=== PATIENT | female | born 1985 | race Caucasian/White ===

== ENCOUNTER 2016-10-20 20:17 | Emergency (ER) | payer SELFPAY ==
[~2016-10-20] VITALS: Ht 157.5 cm; Wt 48.5 kg
--- OUTSIDE RECORDS SUMMARY | 2016-10-20 20:21 | XMS REPORT | Continuity of Care Document ---
Author Author [facility] Organization [facility] Address Unknown Phone Unavailable Support Name Relationship Address Phone ONE, NO Next Of Kin [address] [place] [address] Insurance Providers Payer Name Policy Number Subscriber Name Relationship [facility] [id number] Lorenza [place] 17 Self / Same As Patient Advance Directives Directive Response Recorded Date Advanced Directives Not applicable 6:21am Problems No Known Problems or Medical conditions. Allergies, Adverse Reactions, Alerts Allergen Type Severity Reaction Last Updated SULFA Allergy 08/11/13 Medications Medication Dose Units Route Sig Qty Days No Active Prescriptions or Reported Medications Response Recorded Date/Time Status not known Unknown Results No Known Relevant Diagnostic Tests, Laboratory Data and/or Discharge Summary. Encounters Encounter Location Date/Time Departed Emergency Room [facility] 08/11/13 6:06am
--- OUTSIDE RECORDS SUMMARY | 2016-10-20 20:21 | XMS REPORT ---
Author Author Polly Porter Organization [employer] Address Unknown Phone Unavailable Care Team Providers Care Processor Grain Name Role Phone Polly Porter CP Unavailable Allergies No Known Allergies Problems Problem Type Condition ICD-9 Code Onset Dates Condition Status Problem Chronic tension type headache 339.12 Active Problem Other laboratory examination V72.69 Active Problem Routine gynecological examination V72.31 Active Problem Nonspecific abnormal results of other endocrine function study 794.6 Active Problem Health examination of defined subpopulation V70.5 Active Problem Amphetamine and other psychostimulant dependence, in remission 304.43 Active Problem Lump or mass in breast 611.72 Active Problem Personal history of tobacco use, presenting hazards to health V15.82 Active Medications No Known Medications Results No Known Results Summary Purpose [employer] Submission
--- OUTSIDE RECORDS SUMMARY | 2016-10-20 20:22 | XMS REPORT ---
Author Author Polly Porter Organization [employer] Address Unknown Phone Unavailable Care Team Providers Care Forming Process Line Worker Name Role Phone Polly Porter CP Unavailable Allergies No Known Allergies Problems Problem Type Condition ICD-9 Code Onset Dates Condition Status Problem Personal history of tobacco use, presenting hazards to health V15.82 Active Problem Routine gynecological examination V72.31 Active Problem Lump or mass in breast 611.72 Active Problem Abnormal weight gain 783.1 Active Problem Blood in stool 578.1 Active Problem Unspecified anemia 285.9 Active Problem Nonspecific abnormal results of other endocrine function study 794.6 Active Problem Other laboratory examination V72.69 Active Problem Migraine without aura, without mention of intractable migraine without mention of status migrainosus 346.10 Active Problem External hemorrhoids without mention of complication 455.3 Active Problem Chronic tension type headache 339.12 Active Problem Amphetamine and other psychostimulant dependence, in remission 304.43 Active Problem Health examination of defined subpopulation V70.5 Active Medications No Known Medications Results No Known Results Summary Purpose [employer] Submission
--- OUTSIDE RECORDS SUMMARY | 2016-10-20 20:22 | XMS REPORT ---
Author Author Polly Porter Organization [employer] Address Unknown Phone Unavailable Care Team Providers Care Tool Grinder Name Role Phone Polly Porter CP Unavailable Allergies No Known Allergies Problems Problem Type Condition ICD-9 Code Onset Dates Condition Status Problem Chronic tension type headache 339.12 Active Assessment Nonspecific abnormal results of other endocrine function [...] presenting hazards to health V15.82 Active Medications Medication Code System Code Instructions Start Date End Date Status Dosage Ibuprofen [facility] 72530712934 600 Active TAKE ONE TABLET BY MOUTH THREE TIMES A DAY WITH FOOD OR MILK Chantix Starting Month Jerome [facility] [address]-49 0.5 MG X 11 & 1 MG X 42 Orally twice a day Jun 07, 2014 Active as directed Ferrous Sulfate [facility] [address]-90 325 (65 Fe) MG Orally Twice a day May Active 1 tablet Iron [facility] [address]-13 325 (65 Fe) MG Orally qd Active 1 tablet Risperdal [facility] [address]-00 1 MG/ML Orally Once a day Active 1 tablet Brilinta [facility] [address]-50 20 MG Orally ONCE DAILY Active 1 tablet Plus [facility] [address]-11 27-1 MG Orally Once a day May 30, 2011 Active 1 tablet Methadone HCl [facility] [address]-12 40 mg Orally Once a day Active 1 tablet Tylenol [facility] [address]-13 325 MG Orally prn Active 1 tablet as needed Cyclobenzaprine HCl [facility] [address]-02 5 Active TAKE ONE TABLET BY MOUTH DAILY Strattera [facility] [address]-99 40 MG Orally Once a day Active 1 capsule Procedures Procedure Coding System Code Date ASSAY THYROID STIM HORMONE CPT-4 54567 Jul 15, 2014 Office Visit, Est Pt., Level 3 CPT-4 30014 Jul 15, 2014 ASSAY OF PROLACTIN CPT-4 53385 Jul 15, 2014 Vital Signs Date/Time: Jul 15, 2014 BMI 24.91 Index Weight 145.12 lbs Height 64 in Blood Pressure Diastolic 81 mm Hg Blood Pressure Systolic 124 mm Hg Temperature 98.1 F Cardiac Monitoring Heart Rate 79 /min Results No Known Results Summary Purpose [employer] Submission
--- OUTSIDE RECORDS SUMMARY | 2016-10-20 20:22 | XMS REPORT ---
Author Author Polly Porter Organization [employer] Address Unknown Phone Unavailable Care Team Providers Care Inventory Technician Name Role Phone Polly Porter CP Unavailable Allergies, Adverse Reactions, Alerts Substance Reaction Event Type Sulfacet-R Info Not Available Drug Allergy Problems Problem Type Condition ICD-9 Code Onset Dates Condition Status Problem Amphetamine and other psychostimulant dependence, in remission 304.43 Active Problem Chronic tension type headache 339.12 Active Problem Health examination of defined subpopulation V70.5 Active Assessment Chronic tension type headache 339.12 Active Assessment Health examination of defined subpopulation V70.5 Active Assessment Amphetamine and other psychostimulant dependence, in remission 304.43 Active Medications Medication Code System Code Instructions Start Date End Date Status Dosage Methadone HCl [facility] [address]-46 40 mg Orally Once a day Active 1 tablet Iron [facility] [address]-45 325 (65 Fe) MG Orally qd Active 1 tablet Plus [facility] [address]-11 27-1 MG Orally Once a day May 30, 2011 Active 1 tablet Ferrous Sulfate [facility] [address]-89 325 (65 Fe) MG Orally Twice a day May Active 1 tablet Tylenol [facility] [address]-42 325 MG Orally prn Active 1 tablet as needed Cyclobenzaprine HCl [facility] [address]-59 5 MG Orally Once a day Apr 15, 2014 May 15, 2014 Active 1 tablet Ibuprofen [facility] [address]-38 600 MG Orally Three times a day Apr 15, 2014 May 15, 2014 Active 1 tablet with food or milk Risperdal [facility] [address]-32 0.5 MG Orally Once a day Active 1 tablet Procedures Procedure Coding System Code Date Office Visit, Est Pt., Level 3 CPT-4 76840 Apr 15, 2014 Vital Signs Date/Time: Apr 15, 2014 BMI 22.23 Index Weight 129lb 8oz lbs Height 64 in Blood Pressure Diastolic 73 mm Hg Blood Pressure Systolic 120 mm Hg Temperature 98.3 F Cardiac Monitoring Heart Rate 81 /min Results No Known Results Summary Purpose [employer] Submission
--- OUTSIDE RECORDS SUMMARY | 2016-10-20 20:22 | XMS REPORT ---
Author Author Polly Porter Organization [employer] Address Unknown Phone Unavailable Care Team Providers Care Jerker Name Role Phone Polly Porter CP Unavailable Allergies No Known Allergies Problems Problem Type Condition Code Onset Dates Condition Status Problem Personal [...] hemorrhoids without mention of complication 455.3 Active Assessment Unspecified anemia 285.9 Active Problem Chronic tension type headache 339.12 Active Problem Amphetamine and other psychostimulant dependence, in remission 304.43 Active Problem Health examination of defined subpopulation V70.5 Active Medications Medication Code System Code Instructions Start Date End Date Status Dosage Ferrous Sulfate [facility] [address]-30 325 (65 Fe) MG Orally Once a day November 12, 2014 1 tablet with Vit C source Results No Known Results Summary Purpose [employer] Submission
--- OUTSIDE RECORDS SUMMARY | 2016-10-20 20:22 | XMS REPORT ---
Author Author Polly Potrer Organization [employer] Address Unknown Phone Unavailable Care Team Providers Care Statement Clerks Supervisor Name Role Phone Polly Porter CP Unavailable [...]
--- OUTSIDE RECORDS SUMMARY | 2016-10-20 20:22 | XMS REPORT ---
Author Author Polly Porter Organization [employer] Address Unknown Phone Unavailable Care Team Providers Care Civil Manager Name Role Phone Polly Porter CP Unavailable [...]
--- OUTSIDE RECORDS SUMMARY | 2016-10-20 20:22 | XMS REPORT ---
Author Author Polly Porter Organization [employer] Address Unknown Phone Unavailable Care Team Providers Care Blown Film Extrusion Operator Name Role Phone Polly Porter CP Unavailable Allergies, Adverse Reactions, Alerts Substance Reaction Event Type Sulfacet-R Info Not Available Drug Allergy Problems Problem Type Condition ICD-9 Code Onset Dates Condition Status Assessment Chronic tension type headache 339.12 Active Assessment Lump or mass in breast 611.72 Active Assessment Personal history of tobacco use, presenting hazards to health V15.82 Active Problem Lump or mass in breast 611.72 Active Problem Personal history of tobacco use, presenting hazards to health V15.82 Active Problem Routine gynecological examination V72.31 Active Problem Chronic tension type headache 339.12 Active Assessment Routine gynecological examination V72.31 Active Problem Health examination of defined subpopulation V70.5 Active Problem Amphetamine and other psychostimulant dependence, in remission 304.43 Active Medications Medication Code System Code Instructions Start Date End Date Status Dosage Risperdal [facility] [address]-79 1 MG/ML Orally Once a day Active 1 tablet Brilinta [facility] [address]-13 20 MG Orally ONCE DAILY Active 1 tablet Ferrous Sulfate [facility] [address]-05 325 (65 Fe) MG Orally Twice a day May Active 1 tablet Tylenol [facility] [address]-18 325 MG Orally prn Active 1 tablet as needed Chantix Starting Month Jerome [facility] [address]-82 0.5 MG X 11 & 1 MG X 42 Orally twice a day Jun 07, 2014 Active as directed Strattera [facility] [address]-26 40 MG Orally Once a day Active 1 capsule Methadone HCl [facility] [address]-01 40 mg Orally Once a day Active 1 tablet Plus [facility] [address]-46 27-1 MG Orally Once a day May 30, 2011 Active 1 tablet Iron [facility] [address]-91 325 (65 Fe) MG Orally qd Active 1 tablet Cyclobenzaprine HCl [facility] [address]-42 5 MG Orally Once a day Apr 15, 2014 Jun 14, 2014 Active 1 tablet Procedures Procedure Coding System Code Date Preventive Care Est. Pt. Age 18 -39 CPT-4 52271 Jun 07, 2014 CHYLMD TRACH, DNA, AMP PROBE CPT-4 29402 Jun 07, 2014 N.GONORRHOEAE, DNA, AMP PROB CPT-4 12315 Jun 07, 2014 URINE TEST CPT-4 08998 Jun 07, 2014 COMPLETE CBC W/AUTO DIFF WBC CPT-4 43626 Jun 07, 2014 ASSAY THYROID STIM HORMONE CPT-4 80778 Jun 07, 2014 COMPREHEN METABOLIC PANEL CPT-4 46842 Jun 07, 2014 TRICHOMONAS VAGIN, DIR PROBE CPT-4 65238 Jun 07, 2014 CANDY, DNA, DIR PROBE CPT-4 55240 Jun 07, 2014 ASSAY OF PROLACTIN CPT-4 89938 Jun 07, 2014 LANIER VAG, DNA, DIR PROBE CPT-4 88029 Jun 07, 2014 Vital Signs Date/Time: Jun 07, 2014 BMI 24.74 Index Weight 144.12 lbs Height 64 in Blood Pressure Diastolic 89 mm Hg Blood Pressure Systolic 133 mm Hg Temperature 97.9 F Cardiac Monitoring Heart Rate 103 /min Results No Known Results Summary Purpose [employer] Submission
--- OUTSIDE RECORDS SUMMARY | 2016-10-20 20:22 | XMS REPORT ---
Author Polly Jackson Organization [employer] Address Unknown Phone Unavailable Care Team Providers Care Chemistry Account Manager Name Role Phone Polly Porter CP Unavailable Allergies, Adverse Reactions, Alerts Substance Reaction Event Type Sulfacet-R Info Not Available Drug Allergy Problems Problem Type Condition Code Onset Dates Condition Status Problem Health examination of defined subpopulation V70.5 Active Problem Lump or mass in breast 611.72 Active Problem Personal history of tobacco use, presenting hazards to health V15.82 Active Problem Blood in stool 578.1 Active Problem Migraine without aura, without mention of intractable migraine without mention of status migrainosus 346.10 Active Problem Abnormal weight gain 783.1 Active Problem Other laboratory examination V72.69 Active Problem Routine gynecological examination V72.31 Active Problem External hemorrhoids without mention of complication 455.3 Active Problem Nonspecific abnormal results of other endocrine function study 794.6 Active Assessment Personal history of tobacco use, presenting hazards to health V15.82 Active Assessment External hemorrhoids without mention of complication 455.3 Active Assessment Other laboratory examination V72.69 Active Assessment Blood in stool 578.1 Active Assessment Migraine without aura, without mention of intractable migraine without mention of status migrainosus 346.10 Active Problem Chronic tension type headache 339.12 Active Assessment Abnormal weight gain 783.1 Active Problem Amphetamine and other psychostimulant dependence, in remission 304.43 Active Medications Medication Code System Code Instructions Start Date End Date Status Dosage Risperdal [facility] [address]-88 1 MG/ML Orally Once a day Aug 09, 2014 1 tablet Topamax [facility] [address]-17 25 MG Orally Twice a day November 10, 2014 1 tablet daily X 7 days, then 1 pill 2 X per day Chantix Starting Month Jerome [facility] [address]-73 0.5 MG X 11 & 1 MG X 42 Orally twice a day Jun 07, 2014 as directed Remeron [facility] [address]-55 60 Orally Once a day 1 tablet before bedtime in the evening trazadone [facility] 0 50mg PRN Hydrocortisone Acetate [facility] [address]-26 25 MG Rectal Twice a day November 10, 2014 November 24, 2014 1 suppository Cymbalta [facility] [address]-15 60 MG Orally Once a day 1 capsule Cyclobenzaprine HCl [facility] [address]-80 5 mg orally once a day TAKE ONE TABLET BY MOUTH DAILY as needed Ibuprofen [facility] 85044126080 600 orally once a day TAKE ONE TABLET BY MOUTH THREE TIMES A DAY WITH FOOD OR MILK Latuda [facility] [address]-95 60 MG Orally Once a day 1 tablet with food Procedures Procedure Coding System Code Date ASSAY THYROID STIM HORMONE CPT-4 76301 November 10, 2014 BASIC METABOLIC PANEL CPT-4 99960 November 10, 2014 COMPLETE CBC W/AUTO DIFF WBC CPT-4 03673 November 10, 2014 ASSAY OF PROLACTIN CPT-4 85305 November 10, 2014 ASSAY OF MAGNESIUM CPT-4 56152 November 10, 2014 Office Visit, Est Pt., Level 4 CPT-4 14367 November 10, 2014 Vital Signs Date/Time: November 10, 2014 BMI 27.94 Index Weight 162.8 lbs Height 64 in Blood Pressure Diastolic 75 mm Hg Blood Pressure Systolic 123 mm Hg Temperature 98.5 F Cardiac Monitoring Heart Rate 75 /min Results No Known Results Summary Purpose [employer] Submission
--- OUTSIDE RECORDS SUMMARY | 2016-10-20 20:22 | XMS REPORT ---
Author Author Priscilla Lundberg 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
--- OUTSIDE RECORDS SUMMARY | 2016-10-20 20:22 | XMS REPORT ---
Author Author Polly Porter Organization [employer] Address Unknown Phone Unavailable Care Team Providers Care Flight Manager Name Role Phone Polly Porter CP Unavailable Allergies No Known Allergies Problems Problem Type Condition ICD-9 Code Onset Dates Condition Status Assessment Other laboratory examination V72.69 Active Problem Routine gynecological examination V72.31 Active Problem Lump or mass in breast 611.72 Active Problem Other laboratory examination V72.69 Active Problem Amphetamine and other psychostimulant dependence, in remission 304.43 Active Problem Chronic tension type headache 339.12 Active Problem Personal history of tobacco use, presenting hazards to health V15.82 Active Problem Health examination of defined subpopulation V70.5 Active Medications No Known Medications Results No Known Results Summary Purpose [employer] Submission
--- OUTSIDE RECORDS SUMMARY | 2016-10-20 20:22 | XMS REPORT ---
Author Author Priscilla Lundberg [facility] Address [address] [place] [address] Care Team Providers Care Tooth Cutter Clutch Name Role Phone Priscilla Lundberg Unavailable [phone] PROBLEMS Type Condition ICD9-CM Code [id number] Code Onset Dates Condition Status SNOMED Code Problem Other specified irregular menstruation N92.5 Active 09323546 Problem Other sleep disorders G47.8 Active 43995564 Problem Other specified disorders of the skin and subcutaneous tissue L98.8 Active 73470533 Assessment Low back pain M54.5 Jun, Active 504667556 Problem Low back pain M54.5 Active 497025379 Problem Other psychoactive substance abuse, 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 ALLERGIES Substance Reaction Event Type Date Status Sulfacet-R Unknown Drug Allergy Jun, Active SOCIAL HISTORY No smoking Hx information available PLAN OF CARE VITAL SIGNS Height 64 in 2016-06-19 Weight 128 lbs 8 oz lbs 2016-06-19 BMI 22.05 kg/m2 2016-06-19 Heart Rate 82 /min 2016-06-19 Temperature 98.3 degrees Fahrenheit 2016-06-19 Blood pressure systolic 135 mm Hg 2016-06-19 Blood pressure diastolic 82 mm Hg 2016-06-19 MEDICATIONS Medication Instructions Dosage Frequency Start Date End Date Duration Status Latuda 60 MG Orally Once a day 1/2 tablet with food 24h Active Topamax 25 MG Orally Twice a day 1 tablet daily X 7 days, then 1 pill 2 X per day 12November, Active trazadone 150 mg PO OD 1 tablet as needed Active Ibuprofen 600 orally once a day TAKE ONE TABLET BY MOUTH THREE TIMES A DAY WITH FOOD OR MILK 24h Active BuSpar 5 1 pill 2 times a day Active HydrOXYzine HCl 25 MG Orally every 8 hrs 1 tablet as needed 8h Active Cyclobenzaprine HCl 5 MG orally once a day 1 tablet 24h Aug, 30 days Active RESULTS No Results PROCEDURES Procedure Date Ordered Related Diagnosis Body Site HIV-1 AG W/HIV-1 & HIV-2 AB Jun 19, 2016 HEPATITIS C AB TEST Jun 19, 2016 Office Visit, Est Pt., Level 3 Jun 19, 2016 COMPREHEN METABOLIC PANEL Jun 19, 2016 HEP B SURFACE ANTIBODY Jun 19, 2016 HEP A ANTIBODY, TOTAL Jun 19, 2016 HEPATITIS B SURFACE AG, EIA Jun 19, 2016 HEP B CORE ANTIBODY, TOTAL Jun 19, 2016 IMMUNIZATIONS No Known Immunizations
--- OUTSIDE RECORDS SUMMARY | 2016-10-20 20:22 | XMS REPORT | Referral Summary ---
Author Author [facility] [place] Organization [facility] [place] Address Unknown Phone Unavailable Care Team Providers Care Weed Science Research Technician Name Role Phone Kim Porter Primary Care Physician [phone] Encounter Date(s): 12/20/14 - 12/20/14 [facility] [place] [address], [place] [address] Discharge Diagnosis: Abnormal weight gain Discharge Disposition: 01-Home or Self Care Attending Physician: Christine Kapadia MS, RD, LD Admitting Physician: Christine Kapadia MS, RD, LD Vital Signs No data available for this section Problem List Condition Effective Dates Status Health Status Informant Abnormal weight Active gain(Confirmed) Morbid Active patient obesity(Confirmed) Allergies, Adverse Reactions, Alerts Substance Reaction Severity Status sulfamethoxazole Adverse Reaction Mild Active Medications Cymbalta Oral, 0 Refill(s) Start Date: 10/01/14 Status: Ordered Latuda Oral, Daily, 0 Refill(s) Start Date: 10/01/14 Status: Ordered Remeron Oral, Bedtime (once a day), 0 Refill(s) Start Date: 10/01/14 Status: Ordered Results No data available for this section Immunizations Vaccine Date Refusal Reason influenza virus vaccine, live 06/18/11 tetanus-diphth toxoids (Td) adult/adol 08/07/04 Procedures Procedure Date Related Diagnosis Body Site Cholangiogram1 01/12/14 Laparoscopic Cholecystectomy2, 3 01/12/14 1Laparoscopic Cholecystectomy With Cholangiogram. Cholelithiasis. 2Cholelithiasis 3Laparoscopic Cholecystectomy With Cholangiogram Social History Social History Type Response Smoking Status Current some day smoker; Type: Cigarettes Assessment and Plan Extracted from: Title: Office Visit Note Author: Christine Kapadia MS, RD, Date: 12/20/14 LD Assessment/Plan Following 1400 calories expect1/2 to 1 pound weight loss per week with added exercise. Handouts reviewed: plate method for portion sizes, label tips, high fat list, weight loss tips and the junk food list.Spent approximately 45 minutes with patient today. Follow up in 6 week to review behavior changes for weight loss.Review with physician weight loss medication. Referring physician Polly Porter APRN with [facility] supervising physician Rogelio Erickson MD Location [facility] Addendum Correct BMI=24 by Christine Kapadia MS, RD, LD on December 20, 2014 12:10:12 CDT
--- OUTSIDE RECORDS SUMMARY | 2016-10-20 20:22 | XMS REPORT ---
Author Author Polly Porter Organization [employer] Address Unknown Phone Unavailable Care Team Providers Care Solar Installer Name Role Phone Polly Porter CP Unavailable Allergies, Adverse Reactions, Alerts Substance Reaction Event Type Sulfacet-R Info Not Available Drug Allergy Problems Problem Type Condition Code Onset Dates Condition Status Problem Routine gynecological examination V72.31 Active Problem Nonspecific abnormal results of other endocrine function study 794.6 Active Problem Other laboratory examination V72.69 Active Problem Other sleep disorders G47.8 Active Problem Unspecified anemia 285.9 Active Problem Other specified irregular menstruation N92.5 Active Problem Migraine without aura, without mention of intractable migraine without mention of status migrainosus 346.10 Active Problem External hemorrhoids without mention of complication 455.3 Active Problem Abnormal weight gain 783.1 Active Problem Blood in stool 578.1 Active Assessment Other sleep disorders G47.8 Active Problem Amphetamine and other psychostimulant dependence, in remission 304.43 Active Problem Health examination of defined subpopulation V70.5 Active Assessment Other specified irregular menstruation N92.5 Active Problem Personal history of tobacco use, presenting hazards to health V15.82 Active Problem Chronic tension type headache 339.12 Active Problem Lump or mass in breast 611.72 Active Medications Medication Code System Code Instructions Start Date End Date Status Dosage Ibuprofen [facility] 33513408508 600 orally once a day TAKE ONE TABLET BY MOUTH THREE TIMES A DAY WITH FOOD OR MILK Topamax [facility] [address]-45 25 MG Orally Twice a day November 10, 2014 1 tablet daily X 7 days, then 1 pill 2 X per day Latuda [facility] [address]-56 60 MG Orally Once a day 1/2 tablet with food BuSpar [facility] 0 5 1 pill 2 times a day Procedures Procedure Coding System Code Date Office Visit, Est Pt., Level 3 CPT-4 82586 Jun 13, 2016 URINE TEST CPT-4 41943 Jun 13, 2016 Vital Signs Date/Time: Jun 13, 2016 BMI 21.15 Index Weight 123lbs 4oz lbs Height 64 in Blood Pressure Diastolic 87 mm Hg Blood Pressure Systolic 136 mm Hg Temperature 99.0 F Cardiac Monitoring Heart Rate 83 /min Results Name Result Date Reference Range Unit Abnormality Flag Urine Test (GM) ----Negative NEGATIVE [id number] Summary Purpose [employer] Submission
--- OUTSIDE RECORDS SUMMARY | 2016-10-20 20:22 | XMS REPORT | Continuity of Care Document ---
Author Author [facility] Organization [facility] Address Unknown Phone Unavailable Allergies Active Description Code Type Severity Reaction Onset Reported/Identified Relationship to Patient Clinical Status Yes Sulfa (Sulfonamide Antibiotics Drug Allergy Mild Adverse Reaction 05/30/2011 Yes No Known Food Allergies Food Allergy N/A N/A 06/18/2013 Yes Sulfa Sulfa Severe N/A 02/03/2015 Yes Sulfa Antibiotics - CLASS Class MED N/A N/A 05/14/2016 Medications Medication Packaging Start Date Stop Date Route Dosage Sig Latuda 60 MG Oral Tablet UD 05/14/2016 07/14/2016 ORAL 60MG take 1/2 tab in PM with supper BusPIRone HCl 5 MG Oral Tablet UD 05/14/2016 07/14/2016 ORAL 5MG TAKE 1 TABLET TWICE DAILY. Topiramate 25 MG Oral Tablet UD 05/14/2016 07/14/2016 ORAL 25MG TAKE 1 TABLET TWICE DAILY. TraZODone HCl 50 MG Oral Tablet UD 05/14/2016 07/14/2016 ORAL 50MG TAKE 1 TABLET AT BEDTIME NEEDED FOR SLEEP. Latuda 60 MG Oral Tablet UD 06/18/2016 06/20/2016 ORAL 60MG take 1/2 tab in PM with supper BusPIRone HCl 10 MG Oral Tablet UD 06/18/2016 09/17/2016 ORAL 10MG TAKE 1 TABLET TWICE DAILY. TraZODone HCl 150 MG Oral Tablet 06/18/2016 09/17/2016 ORAL 150MG TAKE 1 OR 2 TABLETS AT BEDTIME NEEDED FOR SLEEP. Topiramate 25 MG Oral Tablet UD 06/18/2016 09/17/2016 ORAL 25MG TAKE 1 TABLET TWICE DAILY. HydrOXYzine HCl 25 MG Oral Tablet UD 06/18/2016 09/17/2016 ORAL 25MG Take 1 po TID prn anxiety Latuda 60 MG Oral Tablet UD 06/19/2016 09/18/2016 ORAL 60MG take 1/2 tab in PM with supper BusPIRone HCl 10 MG Oral Tablet 08/09/2016 10/09/2016 ORAL 10MG Take 1 po TID TraZODone HCl 150 MG Oral Tablet UD 08/09/2016 11/08/2016 ORAL 150MG TAKE 1 OR 2 TABLETS AT BEDTIME NEEDED FOR SLEEP. HydrOXYzine HCl 25 MG Oral Tablet UD 08/09/2016 11/08/2016 ORAL 25MG Take 1 po TID prn anxiety Topiramate 50 MG Oral Tablet UD 08/09/2016 10/09/2016 ORAL 50MG TAKE 1 TABLET TWICE DAILY. Problems Date Dx Coded Attending Type Code Diagnosis Diagnosed By 07/10/2012 Edis Dalton DO 525.9 DENTAL DISORDER NOS 06/16/2013 Dimitri OLSON, Wily Horta Final 304.00 OPIOID DEPENDENCE-UNSPEC 06/16/2013 Dimitri OLSON, Wily Horta Final 401.9 HYPERTENSION NOS 06/18/2013 Ed OLSON, Marbin Roa Final 305.1 TOBACCO USE DISORDER 06/18/2013 Ed OLSON, Marbin Roa Final 305.90 DRUG ABUSE NEC-UNSPEC 06/18/2013 Ed OLSON, Marbin Roa Final 401.9 HYPERTENSION NOS 06/18/2013 Ed OLSON, Marbin Roa 784.0 HEADACHE 06/18/2013 Ed OLSON, Marbin Roa Admitting 787.03 VOMITING ALONE 04/23/2016 F F15.20 Other stimulant dependence, [facility] F F15.20 Other stimulant dependence, uncomplicated Psy, Batch 04/23/2016 F F90.9 Attention-deficit hyperactivity disorder, unspecified type Psy, Batch 04/23/2016 F F31.81 [facility] 04/[facility]/2016 F F15.20 Other stimulant dependence, uncomplicated [facility] 04/23/2016 F F90.9 Attention-deficit hyperactivity disorder, unspecified type [facility] 04/23/2016 F F31.81 Bipolar II disorder Psy, Batch 04/23/2016 F F31.81 [facility] 04/[facility]/2016 F F90.9 Attention-deficit hyperactivity disorder, unspecified [facility] 04/23/2016 F Z59.1 Inadequate housing [facility] 04/23/2016 F Z59.7 Insufficient social insurance and welfare support [facility] 04/23/2016 F Z59.9 Problem related to housing and economic circumstances, unspecified [place] 04/23/2016 F Z63.0 Problems in relationship with spouse or partner [place] 05/14/2016 F F15.20 Other stimulant dependence, uncomplicated Psy, Batch 05/14/2016 F F90.9 Attention-deficit hyperactivity disorder, unspecified type Psy, Batch 05/14/2016 F F31.81 Bipolar II disorder Psy, Batch 05/14/2016 F F31.81 Bipolar II disorder [facility] 05/14/2016 F F90.9 Attention-deficit hyperactivity disorder, unspecified type [facility] 05/14/2016 F Z59.1 Inadequate housing [facility] 05/14/2016 F Z59.7 Insufficient social insurance and welfare support [facility] 05/14/2016 F Z59.9 Problem related to housing and economic circumstances, unspecified [place] 05/14/2016 F Z63.0 Problems in relationship with spouse or partner [facility], [facility] 06/18/2016 F F31.81 Bipolar II disorder Brianna Lott M 06/18/2016 F F15.20 Other stimulant dependence, uncomplicated Brianna Lott M 06/18/2016 F F90.9 Attention-deficit hyperactivity disorder, unspecified type Brianna Lott M 06/18/2016 F F15.20 Other stimulant dependence, uncomplicated Psy, Batch 06/18/2016 F F90.9 Attention-deficit hyperactivity disorder, unspecified type Psy, Batch 06/19/2016 F F31.81 Bipolar II disorder Psy, Batch 06/19/2016 F F31.81 Bipolar II disorder [place] 06/19/2016 F F90.9 Attention-deficit hyperactivity disorder, unspecified type [place] 06/19/2016 F Z59.1 Inadequate housing [facility] 06/19/2016 F Z59.7 Insufficient social insurance and welfare support [facility] 06/19/2016 F Z59.9 Problem related to housing and economic circumstances, unspecified [facility] 06/19/2016 F Z63.0 Problems in relationship with spouse or partner [facility] 08/09/2016 F F15.20 Other stimulant dependence, uncomplicated Melalyson, Yaima R 08/09/2016 F F31.81 Bipolar II disorder Brianna Lott 08/09/2016 F F15.20 Other stimulant dependence, uncomplicated Brianna Lott 08/09/2016 F F90.9 Attention-deficit hyperactivity disorder, unspecified type Brianna Lott 08/09/2016 F F15.20 Other stimulant dependence, uncomplicated Psy, Batch 08/09/2016 F F90.9 Attention-deficit hyperactivity disorder, unspecified type Psy, Batch 08/09/2016 F F31.81 Bipolar II disorder Filippo, Yaima R 08/09/2016 F F90.9 Attention-deficit hyperactivity disorder, unspecified type Melalyson, Yaima R 08/09/2016 F Z59.1 Inadequate housing Yaima Barkley R 08/09/2016 F Z59.7 Insufficient social insurance and welfare support Yaima Barkley R 08/09/2016 F Z59.9 Problem related to housing and economic circumstances, unspecified Yaima Barkley R 08/09/2016 F Z63.0 Problems in relationship with spouse or partner Yaima Barkley R 08/09/2016 F F31.81 Bipolar II disorder Psy, Batch Procedures Code [place] [address] Felicia Peres [address] Felicia Peres [address] OFFICE/OUTPATIENT VISIT, Jerrell Robles 05/14/2016 [id number] OFFICE/OUTPATIENT VISIT, Jerrell Robles 05/14/2016 22330 OFFICE/OUTPATIENT VISIT, EST Filippo, Yaima R 06/18/2016 50407 OFFICE/OUTPATIENT VISIT, EST Filippo, Yaima R 06/18/2016 [id number] OFFICE/OUTPATIENT VISIT, EST Filippo, Yaima R 08/09/2016 75002 OFFICE/OUTPATIENT VISIT, EST Filippo Yaima R 08/09/2016 Results Encounters ACCT No. Visit Date/Time Discharge Status Pt. Type Provider Facility Loc./Unit Complaint [id number] 07/10/2012 21:03:00 2012 21:52:00 DIS Emergency [facility]
--- OUTSIDE RECORDS SUMMARY | 2016-10-20 20:22 | XMS REPORT | Continuity of Care Document ---
Author Author [facility] Organization [facility] Address Unknown Phone Unavailable Support Name Relationship Address Phone ANISHA FRANZ MD Caregiver [address] [address] SHAHEEN COREAS Next Of Kin [address] [place] [address] Insurance Providers Payer Name Policy Number Subscriber Name Relationship [facility] Ed [id number] Lorenza Chavira 17 Self / Same As Patient Chief Complaint and Reason for Visit Chief Complaint Respiratory Complaint Reason for Visit Bronchitis Problems Medical Problems Problem Onset Date Status Bronchitis Unknown Active Medications Medication Dose Route Sig Days/Qty Instructions Order Date Discontinued Date Status Lurasidone Hcl 60 Mg ORAL DAILY 02/03/15 Active Azithromycin 250 Mg ORAL SEE INSTRUCTIONS 6 Qty Day One: Take 2 tablets by mouth Days Two-Five: Take 1 tablet by mouth 02/03/15 Active Duloxetine HCl 3 Tab ORAL DAILY 02/03/15 Active Topiramate 50 Mg ORAL DAILY 02/03/15 Active Benzonatate 200 Mg ORAL EVERY 8HRS PRN COUGH 18 Qty 02/03/15 Active Social History No social history. Hospital Discharge Instructions No hospital discharge instructions. Plan of Care Discharge Date 02/03/15 7:11pm Disposition 01 HOME OR SELF-CARE Condition at Discharge Stable Instructions/Education Provided Acute Bronchitis (ED) Prescriptions See Medications Section Additional Instructions/Education .Follow up with your doctor. ED ASHISH if any worse Some of your test results may not be complete prior to your leaving the Emergency Department. The Emergency Department is not authorized to give test results over the phone. Please contact the doctor's office listed in this packet of information for your final results. Follow up with your primary care physician or return to the Emergency Department for worsening or worrisome symptoms. * Emergency Department phone number: [phone], x [phone]* MEDICAL RECORD If you need copies of your X-rays, call [phone]. If you need copies of your medical record, including lab results, a signed authorization for release of records will be required. A telephone call for release of Health Information is not allowed. BILLING Billing can sometimes be confusing and frustrating. To help avoid confusion in the future, please take a moment to acquaint yourself with the billing parties for services. SERVICE BILLING [employer]STITUTION [employer]Y Emergency Room Services [facility] Physician Services [facility] Patients will receive bills for services from the appropriate provider. If you have any questions about your [facility] bill, our staff will be happy to assist you. Please call [phone], and ask for the billing department. THANK YOU for choosing [facility] as your emergency care provider! Functional Status No functional status results. Allergies, Adverse Reactions, Alerts Allergen Type Severity Reaction Status Last Updated Sulfa Allergy Severe Active 02/03/15 Immunizations No immunization records. Vital Signs Acute Vital Signs Vital Response Date/Time Temperature (Fahrenheit) 98.1 Pulse 106 bpm Respirations 16 Height 5 ft 2 in Weight 121 lb Body Mass Index 22.0 kg/m^2 Results No known relevant diagnostic tests, laboratory data and/or discharge summary. Procedures No known history of procedures. Encounters Encounter Location Date/Time Departed Emergency Room [facility] 02/03/15 6:26pm Recent Diagnosis
--- OUTSIDE RECORDS SUMMARY | 2016-10-20 20:22 | XMS REPORT | Referral Summary ---
Author Author [facility] Organization [facility] Address Unknown Phone Unavailable Care Team Providers Care Marketing Production Coordinator Name Role Phone Kim Porter Primary Care Physician [phone] Encounter Date(s): 11/09/14 - 11/09/14 [facility] [address] [place] [address] [facility] Discharge Diagnosis: Metrorrhagia Discharge Diagnosis: Mucus in stool Discharge Disposition: 01-Home or Self Care Attending Physician: Leana Britton Attending Physician: Provider, Immediate Care Admitting Physician: Provider, Immediate Care Vital Signs Most recent to 1 oldest [Reference Range]: Temperature Oral 37 degC [35.8-37.3 degC] (11/09/14 9:52 AM) Peripheral Pulse 81 bpm Rate [60-100 bpm] (11/09/14 9:52 AM) Blood Pressure 114/75 mmHg [90-140/60-90 mmHg] (11/09/14 9:52 AM) SpO2 98 % (11/09/14 9:52 AM) Problem List Condition Effective Dates Status Health [...] Refill(s) Start Date: 10/01/14 Status: Ordered Results Chemistry Most recent to 1 oldest [Reference Range]: U Beta hCG Ql Negative [Negative] (11/09/14 10:53 AM) Immunizations Vaccine Date Refusal Reason influenza virus vaccine, live 06/18/11 tetanus-diphth toxoids (Td) adult/adol 08/07/04 Procedures Procedure Date Related Diagnosis Body Site Cholangiogram1 01/12/14 Laparoscopic Cholecystectomy2, 3 01/12/14 1Laparoscopic Cholecystectomy With Cholangiogram. Cholelithiasis. 2Cholelithiasis 3Laparoscopic Cholecystectomy With Cholangiogram Social History Social History Type Response Smoking Status Current some day smoker; Type: Cigarettes Assessment and Plan Extracted from: Title: Office Visit Note Author: Leana Britton Date: 11/09/14 Assessment/Plan 1.Mucus in stool Occult Blood: Negative Discussed with patient the test for blood in her stool was negative. Include more fiber in your diet. Fresh fruits, leafy vegetables, and whole-grain breads and cereals are good sources of fiber, Drink plenty of fluids (except alcohol). Eight glasses of water a day is ideal, Exercise regularly, bulk-forming laxatives such as Fiberall, Metamucil, etc. When you feel the need to have a bowel movement, don't wait too long to use the bathroom. Instructed patient if symptoms worsen or new symptoms arise to seek medical attention here or at the ER. Instructed patient if symptoms do not improve follow up with PCP in 2-3 days. Patient voiced understanding and agreed with treatment plan. Ordered: Office Visit Level 4 Est 54188 2.Metrorrhagia Urine : Negative Discussed with patient her urine test is negative. Instructed her to follow-up with her PCP for further evaluation and management of her menstrual , , and weight gain complaints. Ordered: Office Visit Level 4 Est 03807
--- OUTSIDE RECORDS SUMMARY | 2016-10-20 20:22 | XMS REPORT ---
Author Author Polly Porter Organization [employer] Address Unknown Phone Unavailable Care Team Providers Care Analytical Clerk Name Role Phone Polly Porter CP Unavailable [...]
[2016-10-20 20:30] VITALS: Ht 157.5 cm; Wt 48.5 kg
[2016-10-20] MEDS ORDERED: LURA40TA (21:43)
[2016-10-20] MEDS ORDERED: TOPI50TA (21:43)
[2016-10-20] MEDS ORDERED: BUSP15TA3 (21:43)
[2016-10-20] MEDS ORDERED: TRAZ150T80 (21:43)
[2016-10-20] MEDS ORDERED: HYDR-3841 PO (21:43)
[2016-10-20] MEDS ORDERED: LET TOPICAL GEL 3ml TOP ONE (21:45)
--- NOTE | 2016-10-20 21:47 | ERPDOC ---
Departure Disposition Decision Date: Oct 20, 2016 Disposition Decision Time: 22:43 Disposition: 01 DISCHARGED HOME, SELF-CARE Impression Impression Impression: Primary Impression: Arm laceration Encounter type: initial encounter Laterality: right Qualified Codes: S41.111A - Laceration without foreign body of right upper arm, initial encounter Severity: Moderate Condition: Stable Seen By: Mid-level only Patient Instructions: Laceration (ED) Problems/Meds/Labs Reviewed?: Yes Medications reviewed and manag: Yes Additional Instructions: Have the sutures taken out in about 7-10 days with your primary care provider. May cover with antibiotic ointment and band aid. Wash daily with soap and water. May take Tylenol and/or Motrin as needed for pain. Follow up care ordered?: Yes Mental Status: Alert HPI - Skin General General Chief Complaint: Laceration Stated Complaint: RT FOREARM LACERATION Time Seen by Provider: 21:41 Source: patient Exam Limitations: no limitations HPI - Skin General Initial Comments She has a lamp at home and she tried to turn it on. The glass broke and she has a laceration on the right forearm from the glass. She presents to Er today for evaluation and repair of the laceration. Occurred At: home Onset: Rapid Duration: 1-3 hrs Severity: moderate Location: extremities (right forearm) Possible Cause: other (cut with glass) Associated Symptoms: denies symptoms Hx of Similar Symptoms: No Allergies: Coded Allergies: Sulfa (Sulfonamide Antibiotics) (Verified Allergy, Intermediate, HIVES, ) Past History Past Medical History Pt denies signifigant PMH Surgical History Denies Surgeries Family History Family History: Negative Social History Smoking Status: Never smoker Substance Use Type: does not use Alcohol Intake: none Review of Systems Musculoskeletal General: pain (right forearm), DENIES: joint pain, joint swelling, tenderness Integumentary Skin: other (right forearm), DENIES: rash Neurological General: DENIES: tingling, weakness Physical Exam General General Nourishment: well nourished, well developed, appears stated age, no acute distress, adult General Body Habitus: well groomed Vitals and Pain First Documented Vital Signs Date Time Temp Pulse Resp B/P Pulse Ox O2 Delivery O2 Flow Rate FiO2 10/20/16 20:30 98.6 95 16 144/77 99 Room Air Weight: Kilograms: 48.500 Height (feet): 5 Height (inches): 2.00 Triage Pain Scale: RN VS reviewed by Provider: Yes Normal Exams: Lymphatic: No lymphadenopathy, or lymphedema noted Musculoskeletal: No tenderness, or deformity noted, good range of motion, all extremities Neurologic: Patient is alert, and oriented Psychiatric: Patient exhibits, appropriate attention, emotion and affect Integumentary (brief) Integumentary Brief: FOUND: other (There is a superficial laceration on the right forearm that is approximately 1.5 cm long with gaping. No active bleeding noted. ) Procedures Procedures Performed Procedures Performed: Laceration Repair Laceration/Wound Repair Wound/Laceration Repair : Wound Location: upper extremity (right forearm) Wound Length (cm): 1.5 Depth, Shape: subcutaneous, linear Explored: clean Irrigated: saline Prep: chlorasept Anesthesia: 1% Lidocaine Type of Block: local Repaired With: Sutures Suture Size: 5:0 Suture Type: prolene Number of Sutures: 3 Layer Closure?: No Progress Results/Orders Orders Procedure Category Date Status Time Let Topical Gel 3 Ml PHA 10/20/16 Complete (L.E.T. Topical Gel 21:45 Lidocaine 1% PHA 10/20/16 In Process (Xylocaine 1%) 22:45 Medications Current ED Medications Lidocaine/ Epinephrine (L.e.t. Topical Gel 3 ml) 3 ml O ONCE TOP Last administered on 10/20/16 21:49; Start 10/20/16 at 21:45; Stop 10/20/16 at 21:46 ; Status DC Lidocaine HCl (Xylocaine 1%) 100 mg O ONCE INFIL Last administered on 22:34; Start 10/20/16 at 22:45; Stop 10/20/16 at 22:46 Progress Progress Sutures out in 7-10 days with primary care provider. Wash daily with soap and water. May cover with antibiotic ointment as needed. PERCY BREWSTER APRN Oct 20, 2016 21:46
--- OUTSIDE RECORDS SUMMARY | 2016-10-20 22:03 | XMS REPORT | Continuity of Care Document ---
Author Author [facility] Organization [facility] Address Unknown Phone Unavailable Allergies Active Description [...] F F15.20 Other [facility], [facility] F15.20 Other stimulant dependence, uncomplicated Psy, Batch 04/23/2016 F F90.9 Attention-deficit hyperactivity disorder, unspecified type Psy, Batch 04/23/2016 F F31.81 [facility] F F15.20 Other stimulant dependence, uncomplicated Peres, [place] 04/23/2016 F F90.9 Attention-deficit hyperactivity disorder, unspecified type [facility] 04/23/2016 F F31.81 Bipolar II disorder Psy, Batch 04/23/2016 F F31.81 [facility] F F90.9 Attention-deficit hyperactivity disorder, unspecified [facility]2016 F Z59.1 [facility]ate [facility]2016 F Z59.7 Insufficient social insurance and welfare [facility] 04/[facility]2016 F Z59.9 Problem related to housing and economic circumstances, unspecified [place], [place] 04/23/2016 F Z63.0 Problems in relationship with spouse or partner [place], [place] 05/14/2016 F F15.20 Other stimulant dependence, uncomplicated Psy, Batch 05/14/2016 F F90.9 Attention-deficit hyperactivity disorder, unspecified type Psy, Batch 05/14/2016 F F31.81 Bipolar II disorder Psy, Batch 05/14/2016 F F31.81 Bipolar II disorder Peres, [place] 05/14/2016 F F90.9 Attention-deficit hyperactivity disorder, unspecified type Peres, [place] 05/14/2016 F Z59.1 Inadequate housing [facility] 05/14/2016 F Z59.7 Insufficient social insurance and welfare support [facility] 05/14/2016 F Z59.9 Problem related to housing and economic circumstances, unspecified [place], [place] 05/14/2016 F Z63.0 Problems in relationship with spouse or partner Peres, [place] 06/18/2016 F F31.81 Bipolar II disorder Brianna Lott M 06/18/2016 F F15.20 Other stimulant dependence, uncomplicated Brianna Lott M 06/18/2016 F F90.9 Attention-deficit hyperactivity disorder, unspecified type Brianna Lott M 06/18/2016 F F15.20 Other stimulant dependence, uncomplicated Psy, Batch 06/18/2016 F F90.9 Attention-deficit hyperactivity disorder, unspecified type Psy, Batch 06/19/2016 F F31.81 Bipolar II disorder Psy, Batch 06/19/2016 F F31.81 Bipolar II disorder [place], [place] 06/19/2016 F F90.9 Attention-deficit hyperactivity disorder, unspecified type [place], [place] 06/19/2016 F Z59.1 Inadequate housing [facility] 06/19/2016 F Z59.7 Insufficient social insurance and welfare support [facility] 06/19/2016 F Z59.9 Problem related to housing and economic circumstances, unspecified [facility] 06/19/2016 F Z63.0 Problems in relationship with spouse or partner [facility] 08/09/2016 F F15.20 Other stimulant dependence, uncomplicated [...] Procedures Code [place] [address] Felicia Peres 36487 Felicia Peres [id number] OFFICE/OUTPATIENT VISIT, Jerrell Robles 05/14/2016 [id number] OFFICE/OUTPATIENT VISIT, Jerrell Robles 05/14/2016 [id number] OFFICE/OUTPATIENT VISIT, EST Filippo, Yaima R 06/18/2016 [id number] OFFICE/OUTPATIENT VISIT, EST Filippo, Yaima R 06/18/2016 [id number] OFFICE/OUTPATIENT VISIT, EST Filippo, Yaima R 08/09/2016 [id number] OFFICE/OUTPATIENT VISIT, EST Filippo Yaima R 08/09/2016 Results Encounters ACCT No. Visit Date/Time Discharge Status Pt. Type Provider Facility Loc./Unit Complaint [id number] 07/10/2012 21:03:00 2012 21:52:[address] [facility] [place]
--- OUTSIDE RECORDS SUMMARY | 2016-10-20 22:03 | XMS REPORT | Continuity of Care Document ---
Author Author [facility] Organization [facility] Address Unknown Phone Unavailable Support Name Relationship Address Phone ANISHA FRANZ MD Caregiver [address] [place] [address] SHAHEEN COREAS Next Of Kin [address] [place] [address] Insurance Providers Payer Name Policy Number Subscriber Name Relationship [facility] [id number] Lorenza Chavira 17 Self / Same As [...] worrisome symptoms. * Emergency Department phone number: [phone], x [phone] MEDICAL RECORD If you need copies of your X-rays, call [phone] x [phone]. If you need copies of [...] the billing parties for services. SERVICE BILLING [employer] Emergency Room Services [facility] Physician Services [facility] X-rays [facility] Patients will receive bills for services from the appropriate provider. If you have any questions about your [facility] bill, our staff will be happy to assist you. Please call [phone], and ask for the billing department. THANK YOU for choosing [facility] as your emergency care provider! Functional Status [...] Encounters Encounter Location Date/Time Departed Emergency Room [facility] 02/03/15 6:26pm Recent Diagnosis
[2016-10-20] MEDS ORDERED: LIDOCAINE 1% (10mg/ml) 30ml SDV INFIL ONE (22:45)
[2016-10-20 22:51] VITALS: BP 135/65; PULSE 85; RESP 16; TEMP 98; O2SAT 98
== END 2016-10-20 22:51 | disposition home or self-care (01) ==
LOC: ED 20:17
DX: S51.811A Laceration without foreign body of right forearm, initial encounter (principal); W25.XXXA Contact with sharp glass, initial encounter; Y93.89 Activity, other specified; Y92.009 Unspecified place in unspecified non-institutional (private) residence as the place of occurrence of the external cause; Y99.8 Other external cause status